=== PATIENT | male | born 1935 | race Caucasian/White ===

== ENCOUNTER → 2020-06-12 | Outpatient (CLI) | payer OTHER, BC ==
[~2020-06-12] MED LIST: AMITRIPTYLINE H25 M2 PO; ANORO ELLIPTA1 EACH INH; ASPIRIN325 PO; ATORVASTATIN CA10 MG PO; AVELOX 400 MG400 MG; AVELOX 400 MG400 MG PO; BRIMONIDINE TAR1 BO1; CARDIZEM CD120 MG PO; CARDIZEM SR 60M60 MG PO; DUONEB 2.5-0.5 M3 ML; FLOVENT HFA 4444 MCG IH; HYTRIN 5 M5 MG/1 CAP PO; LANOXIN 0.250.25 M1 PO; MS CONTIN 30 MG30 M1 PO; MUCINEX600 MG PO; OMEPRAZOLE40 MG PO; OXYCONTIN30 MG PO; PERCOCET 5-3251 EACH PO; PROAIR HFA8.5 GM INH; PROTONIX40 M2 PO; VITAMIN D-32000 UNIT PO; WARFARIN SODIUM4 MG PO; ZOCOR 20 MG TAB20 M1 PO
== END ==
LOC: SJCVC 13:36
PROVIDERS: ATTEND Internal Medicine Cardiovascular Disease
DX: I48.21 Permanent atrial fibrillation (principal); R94.31 Abnormal electrocardiogram [ECG] [EKG]; J44.9 Chronic obstructive pulmonary disease, unspecified; G47.33 Obstructive sleep apnea (adult) (pediatric); G89.29 Other chronic pain; Z95.0 Presence of cardiac pacemaker; Z79.899 Other long term (current) drug therapy; Z87.891 Personal history of nicotine dependence

== ENCOUNTER → 2020-06-18 | Outpatient (CLI) | payer OTHER, BC | LOC: LAB | PROVIDERS: ATTEND Internal Medicine Cardiovascular Disease | DX: Z01.812 Encounter for preprocedural laboratory examination (principal); Z20.828 Contact with and (suspected) exposure to other viral communicable diseases ==

== ENCOUNTER → 2020-06-23 | Outpatient (CLI) | payer OTHER, BC ==
[~2020-06-23] VITALS: Ht 172.7 cm; Wt 73.0 kg
[2020-06-23 10:39] VITALS: BP 158/72
[2020-06-23 10:44] LABS: ABSOLUTE NEUTROPHILS 4.1 thou/uL (1.4-8.2); BASOPHILS 0.5 % (0.0-2.0); EOSINOPHILS 0.6 % (0.0-3.0); HEMATOCRIT 38.4 % (42.0-52.0); HEMOGLOBIN 12.8 gm/dL (14.0-18.0); LYMPHOCYTES 31.6 % (24.0-44.0); MCH 31.9 pg (26.0-34.0); MCHC 33.3 g/dL (28.0-37.0); MCV 95.6 fL (80.0-100.0); MONOCYTES 8.8 % (1.0-8.0); PLATELET COUNT 115 thou/uL (150-400); POLYS 58.5 % (36.0-66.0); RBC 4.02 mil/uL (4.50-6.00); RDW 14.1 % (10.5-14.5)
[2020-06-23 10:54] LABS: CALCIUM 8.8 mg/dL (8.5-10.1); CREATININE 0.9 mg/dL (0.7-1.3); POTASSIUM 3.7 mmol/L (3.5-5.1)
[2020-06-23 10:56] LABS: APTT 28.6 Seconds (24.5-32.8); INR 1.3; PROTIME 13.4 Seconds (9.3-11.4)
--- NOTE | 2020-06-23 14:11 | NUR ---
1340 PT BACK FROM PACU. NO VOICED COMPLAINTS. REQUESTING 7UP TO DRINK. INCISION WITH DERMABOND. NO DRAINAGE. EDGES WELL APPROXIMATED. WILL DISCHARGE PATIENT AT 1430. SON IN-LAW AT BEDSIDE
--- NOTE | 2020-06-24 12:49 | P ---
[facility] [place] [address] PROCEDURE REPORT Name: BJ WEEKS Room #: REG [facility]#: [id number] Admission: 06/23/20 Attend Phys: Ruiz Maddox MD Discharge: Date of : 33 Report #: [id number] THIS REPORT FOR: cc: Ruth Mckeon MD, Kristin E. MD Couchonnal, Luis F. MD ~ CC: Ruth Maddox DATE OF SERVICE: 06/23/2020 PACEMAKER GENERATOR EXCHANGE. PREOPERATIVE DIAGNOSIS: Pacemaker elective replacement indicator. POSTOPERATIVE DIAGNOSIS: Pacemaker elective replacement indicator. HISTORY: The patient is an 84-year-old with history of symptomatic bradycardia, status post pacemaker implantation as well as permanent atrial fibrillation, here for pacemaker generator exchange. ANESTHESIA: The patient underwent MAC anesthesia with no anesthesia related complications. DESCRIPTION OF PROCEDURE: The patient underwent informed consent. We discussed the details of the procedure including the risks, which include but not limited to bleeding, infection and need for possible lead revisions. He understood these risks and is willing to proceed. The patient was brought to EP laboratory in a fasting and sedated state, prepped and draped in a sterile fashion. He received IV antibiotics. I injected lidocaine below the level of clavicle. Incision was made, pocket was opened. The old device was disconnected from the leads. The patient was not pacer dependent. The new device was connected, tested and found to be functioning normally. Then, the pocket was closed in 2 layers using 2-0 for the deep layer, 3-0 for the mid layer and surgical glue was placed through outer skin layer. The patient awoke neurologically and hemodynamically intact. No complications and no significant bleeding. The implanted pacemaker was a Medtronic model #ADDR01, serial #[id number], implanted on 01/23/2009. The newly implanted device was a Medtronic, model #W3DR01, serial #[id number]. The atrial and ventricular leads were model #5076, atrial lead serial #[id number], RV lead serial #[id number], both implanted on 04/26/2002. The patient is in permanent atrial fibrillation and the RV lead demonstrates R-wave of 5 millivolts, pacing impedance of 582 ohms and a pacing threshold of 0.75 volts at 0.9 milliseconds. The device was programmed to the VVIR 60-130 mode. [facility] [address] [place] [address] PROCEDURE REPORT Name: DESIBJ L Room #: REG [facility]#: [id number] Admission: 06/23/20 Attend Phys: Ruiz Maddox MD Discharge: Date of : 33 Report #: [id number] CONCLUSIONS: 1. Successful pacemaker generator exchange. 2. Satisfactory atrial and ventricular pacing and sensing thresholds. <ELECTRONICALLY SIGNED> By: Ruiz Maddox MD 06/24/20 [id number] Ruiz Maddox MD /gregorio
== END | disposition home or self-care (01) ==
LOC: CATH 09:19
PROVIDERS: ATTEND Internal Medicine Cardiovascular Disease
DX: Z45.010 Encounter for checking and testing of cardiac pacemaker pulse generator [battery] (principal); R00.1 Bradycardia, unspecified; I48.21 Permanent atrial fibrillation; E78.5 Hyperlipidemia, unspecified; J44.9 Chronic obstructive pulmonary disease, unspecified; N40.0 Benign prostatic hyperplasia without lower urinary tract symptoms; G43.909 Migraine, unspecified, not intractable, without status migrainosus; K21.9 Gastro-esophageal reflux disease without esophagitis; Z98.890 Other specified postprocedural states; Z79.899 Other long term (current) drug therapy; Z79.01 Long term (current) use of anticoagulants; Z86.010 Personal history of colon polyps; Z90.49 Acquired absence of other specified parts of digestive tract; Z85.828 Personal history of other malignant neoplasm of skin; Z98.41 Cataract extraction status, right eye; Z98.42 Cataract extraction status, left eye; Z87.891 Personal history of nicotine dependence; Z88.8 Allergy status to other drugs, medicaments and biological substances
CPT/HCPCS: 62110; 62900; 70005